=== PATIENT | female | born 1995 | race Asian ===

== ENCOUNTER 2023-02-27 13:53 | Emergency (ER) | payer MEDICAID ==
[~2023-02-27] VITALS: Ht 162.6 cm; Wt 53.0 kg
[2023-02-27 14:01] VITALS: BP 95/44
== END 2023-02-27 14:47 | disposition home or self-care (01) ==
LOC: ER 14:19
DX: Z30.431 Encounter for routine checking of intrauterine contraceptive device (principal)
CPT/HCPCS: 99281